=== PATIENT | female | born 1955 | race Caucasian/White ===

== ENCOUNTER 2018-01-01 14:06 | Inpatient (IN) | payer MEDICARE, OTHER ==
[2018-01-01 14:53] VITALS: BP 162/75
[2018-01-01] MEDS ORDERED: Maalox 30 mL Cup PO PRN (15:33)
[2018-01-01] MEDS ORDERED: Magnesium Hydroxide (MOM) 30 mL UDC PO PRN (15:33)
[2018-01-01] MEDS ORDERED: GUAIFENESIN PO PRN (15:37)
[2018-01-01] MEDS ORDERED: guaiFENesin 200 MG/10 ML UDC PO PRN (16:42)
[2018-01-01] MEDS: INSULIN ASPART SLIDING SCALE 100 UNITS/ML UNIT SUBQ SCH ×2 (17:44→21:40)
[2018-01-01] MEDS: Atorvastatin Calcium 10 MG TAB PO SCH (21:38)
[2018-01-02] MEDS: INSULIN ASPART SLIDING SCALE 100 UNITS/ML UNIT SUBQ SCH ×4 (06:34→20:18)
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
[2018-01-02] MEDS: Albuterol Nebulizer 2.5mg/3mL HHN PRN (12:54)
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
[2018-01-02] MEDS: Atorvastatin Calcium 10 MG TAB PO SCH (20:16)
[2018-01-03] MEDS: INSULIN ASPART SLIDING SCALE 100 UNITS/ML UNIT SUBQ SCH ×4 (06:59→22:00)
[2018-01-03 07:04] LABS: % BASOPHILS 0.6 % (0.0-2.0); % EOSINOPHILS 1.8 % (0.0-5.0); % LYMPHOCYTES 42.2 % (20.0-50.0); % MONOCYTES 7.1 % (2.0-10.0); % NEUTROPHILS 48.3 % (40.0-80.0); EOSINOPHILE ABSOLUTE 0.1 Th/cmm (0.1-0.4); HEMATOCRIT 34.5 % (41.0-60); HEMOGLOBIN 11.4 gm/dL (12-16); LYMPHOCYTE ABSOLUTE 2.9 Th/cmm (1.5-3.0); MEAN CELL VOLUME 84.3 fl (81-100); MEAN CORPUSCULAR HEMOGLOBIN 27.9 pg (27.0-31.0); MEAN CORPUSCULAR HGB CONC 33.1 pg (28.0-36.0); MEAN PLATELET VOLUME 8.7 fl; MONOCYTE ABSOLUTE 0.5 Th/cmm (0.3-1.0); NEUTROPHILE ABSOLUTE 3.4 Th/cmm (1.8-8.0); PLATELET COUNT 208 Th/cmm (150-400); RED CELL DISTRIBUTION WIDTH 13.1 % (11.5-20.0); WHITE BLOOD COUNT 6.9 Th/cmm (4.8-10.8)
[2018-01-03 07:22] LABS: ALB/GLOB RATIO 1.2 (1.0-1.8); ALBUMIN 4.1 gm/dL (3.7-5.3); ALKALINE PHOSPHATASE 89 U/L (34-104); ANION GAP 10.9 (7.0-16.0); BILIRUBIN,TOTAL 0.5 mg/dL (0.3-1.0); BUN - UREA NITROGEN 12 mg/dL (7-25); CALCIUM SERUM 9.9 mg/dL (8.6-10.3); CARBON DIOXIDE 27.3 mEq/L (21.0-31.0); CHLORIDE 104 mEq/L (98-107); CREATININE - SERUM 0.8 mg/dL (0.6-1.2); GFR AFRICAN-AMERICAN > 60.0 ml/min (>90); GFR NON AFRICAN-AMERICAN > 60.0 ml/min; GLUCOSE 197 mg/dL (70-105); POTASSIUM SERUM 4.2 mEq/L (3.5-5.1); SGOT 18 U/L (13-39); SGPT/ALT 14 U/L (7-52); SODIUM SERUM 138 mEq/L (136-145); TOTAL PROTEIN,SERUM 7.4 gm/dL (6.0-8.3)
--- NOTE | 2018-01-03 09:13 | General Progress Note ---
Subjective - Review of Systems Service Date: 01/03/18 Subjective: I am fine Objective - Results Result Diagrams: 01/03/18 06:30 01/03/18 06:30 Recent Labs: Laboratory Last Values WBC 6.9 Th/cmm (4.8-10.8) 01/03/18 06:30 RBC 4.10 Mil/cmm (3.80-5.10) 01/03/18 06:30 Hgb 11.4 gm/dL (12-16) L 01/03/18 06:30 Hct 34.5 % (41.0-60) L 01/03/18 06:30 MCV 84.3 fl (81-100) 01/03/18 06:30 MCH 27.9 pg (27.0-31.0) 01/03/18 06:30 MCHC Differential 33.1 pg (28.0-36.0) 01/03/18 06:30 RDW 13.1 % (11.5-20.0) 01/03/18 06:30 Plt Count 208 Th/cmm (150-400) 01/03/18 06:30 MPV 8.7 fl 01/03/18 06:30 Neutrophils % 48.3 % (40.0-80.0) 01/03/18 06:30 Lymphocytes % 42.2 % (20.0-50.0) 01/03/18 06:30 Monocytes % 7.1 % (2.0-10.0) 01/03/18 06:30 Eosinophils % 1.8 % (0.0-5.0) 01/03/18 06:30 Basophils % 0.6 % (0.0-2.0) 01/03/18 06:30 Sodium 138 mEq/L (136-145) 01/03/18 06:30 Potassium 4.2 mEq/L (3.5-5.1) 01/03/18 06:30 Chloride 104 mEq/L (98-107) 01/03/18 06:30 Carbon Dioxide 27.3 mEq/L (21.0-31.0) 01/03/18 06:30 Anion Gap 10.9 (7.0-16.0) 01/03/18 06:30 BUN 12 mg/dL (7-25) 01/03/18 06:30 Creatinine 0.8 mg/dL (0.6-1.2) 01/03/18 06:30 Est GFR ( Amer) > 60.0 ml/min (>90) 01/03/18 06:30 Est GFR (Non-Af Amer) > 60.0 ml/min 01/03/18 06:30 BUN/Creatinine Ratio 15.0 01/03/18 06:30 Glucose 197 mg/dL (70-105) H 01/03/18 06:30 POC Glucose 267 MG/DL (70 - 105) H 01/01/18 16:07 Calcium 9.9 mg/dL (8.6-10.3) 01/03/18 06:30 Total Bilirubin 0.5 mg/dL (0.3-1.0) 01/03/18 06:30 AST 18 U/L (13-39) 01/03/18 06:30 ALT 14 U/L (7-52) 01/03/18 06:30 Alkaline Phosphatase 89 U/L (34-104) 01/03/18 06:30 Total Protein 7.4 gm/dL (6.0-8.3) 01/03/18 06:30 Albumin 4.1 gm/dL (3.7-5.3) 01/03/18 06:30 Globulin 3.3 gm/dL 01/03/18 06:30 Albumin/Globulin Ratio 1.2 (1.0-1.8) 01/03/18 06:30 TSH 0.88 uIU/ml (0.34-5.60) 01/03/18 06:30 - Physical Exam Vitals and I&O: Vital Signs Temp 98.5 F 01/03/18 06:04 Pulse 86 01/03/18 08:42 Resp 18 01/03/18 07:13 BP 156/65 01/03/18 08:42 Pulse Ox 97 01/03/18 07:13 Intake & Output 01/02/18 01/03/18 01/03/18 18:59 06:59 18:59 Intake Total 500 Balance 500 Intake: Oral 500 Other: # Voids 4 # Bowel Movements 0 Active Medications: Current Medications Acetaminophen (Tylenol) 650 mg PO Q6HR PRN PRN Reason: Fever > 101 Stop: 03/02/18 15:36 Acetaminophen (Tylenol) 650 mg PO Q4H PRN PRN Reason: Pain (Mild) Stop: 03/02/18 18:38 Last Admin: 01/02/18 22:00 Dose: 650 mg Al Hydrox/Mg Hydrox/Simethicone (Maalox) 30 ml PO Q6H PRN PRN Reason: Dyspepsia Stop: 03/02/18 15:32 Albuterol Sulfate (Albuterol 2.5mg/3ml Neb Ud) 2.5 mg HHN Q6H PRN PRN Reason: Shortness of Breath or Wheeze Stop: 03/03/18 12:17 Last Admin: 01/02/18 12:54 Dose: 2.5 mg Amlodipine Besylate (Norvasc) 10 mg PO DAILY [facility] Stop: 03/03/18 08:59 Last Admin: 01/03/18 08:42 Dose: 10 mg Aripiprazole (Abilify) 5 mg PO DAILY ADRIANA PRN Reason: Protocol Stop: 03/04/18 08:59 Last Admin: 01/03/18 08:42 Dose: 5 mg Atorvastatin Calcium (Lipitor) 20 mg PO 2100 [facility] Stop: 03/02/18 20:59 Last Admin: 01/02/18 20:16 Dose: 20 mg Fluoxetine HCl (Prozac) 20 mg PO DAILY ADRIANA PRN Reason: Protocol Stop: 03/04/18 08:59 Last Admin: 01/03/18 08:42 Dose: 20 mg Glipizide (Glucotrol) 5 mg PO BID [facility] Stop: 03/02/18 16:59 Last Admin: 01/03/18 08:42 Dose: 5 mg Guaifenesin (Robitussin) 100 mg PO Q4H PRN PRN Reason: Cough Stop: 03/02/18 16:41 Ibuprofen (Motrin) 400 mg PO Q4HR PRN PRN Reason: Pain (Mild) Stop: 03/02/18 15:36 Last Admin: 01/02/18 16:44 Dose: 400 mg Insulin Aspart (Novolog Insulin Sliding Scale) 0 units SUBQ ACHS ADRIANA PRN Reason: Protocol Stop: 03/02/18 16:59 Last Admin: 01/03/18 06:59 Dose: 5 units Lisinopril (Zestril) 10 mg PO BID [facility] Stop: 03/02/18 16:59 Last Admin: 01/03/18 08:42 Dose: 10 mg Lorazepam (Ativan) 0.5 mg PO Q4HR PRN; Protocol PRN Reason: Anxiety/Agitation Stop: 03/02/18 16:09 Last Admin: 01/02/18 21:15 Dose: 0.5 mg Magnesium Hydroxide (Milk Of Magnesia) 30 ml PO DAILY PRN PRN Reason: Constipation Stop: 03/02/18 15:32 General: Alert, No acute distress HEENT: Atraumatic Neck: Supple Cardiovascular: Regular rate Lungs: Clear to auscultation Abdomen: Bowel sounds, Soft Extremities: Other (no edema) Neurological: Other (unstable gait) Skin: Other (Warm and dry) Psych/Mental Status: Other (Awake, alert, confused.) Assessment/Plan - Problem List Patient Problems: All Active Problems Activity intolerance (Acute) R68.89 Arthritis (Acute) M19.90 Diabetes (Acute) E11.9 HTN (hypertension) (Acute) I10 Schizophrenia (Acute) F20.9 - Assessment Assessment: Current Active Problems Problem Status Onset Activity intolerance Acute Arthritis Acute Diabetes Acute HTN (hypertension) Acute Schizophrenia Acute Patient is awake, alert, calm, in no acute distress Dx: Increased in agitation, HTN, CAD - Plan Plan: Patient is follow by psychiatry, she is continue with home meds, Will continue to monitor. Nutritional Asmnt/Malnutr-PDOC - Dietary Evaluation Malnutrition Findings (Please click <Entered> for more info): Nutritional Asmnt/Malnutrition Start: 01/02/18 11: 40 Text: Status: Complete Freq: Document 01/02/18 11:40 [email or web address] (Rec: 01/02/18 11:49 [facility] Nutritional Asmnt/Malnutrition Patient General Information Nutritional Screening High Risk Diagnosis Psychosis Pertinent Medical Hx/Surgical Hx None indicated Subjective Information patient was transferred from another medical center; seen as high risk due to elevated blood glucose. Current Diet Order/ Nutrition Support [facility] / S[facility] Not Indicated Pertinent Medications maalox, lipitor, Glipizide, Novolog, MOM Pertinent Labs Glucose 267 Nutritional Hx/Data Height 1.83 m Height (Calculated Centimeters) 182.9 Current Weight (lbs) 98.883 kg Weight (Calculated Kilograms) 98.9 Weight (Calculated Grams) 07750.1 [place] Body Weight 160 % [place] Body Weight 136 Body Mass Index (BMI) 29.5 Recent Weight Change No Weight Status Overweight GI Symptoms GI Symptoms None Difficult in: None Food Allergies No Cultural/Ethnic/Pentecostalism Belief None indicated Skin Integrity/Comment: Elias 18, intact Estimated Nutritional Goals BEE in Kcals: Using Current wt Calories/Kcals/Kg 99kg CBW (20-25 kcal/kg) Kcals Calculated 5358-2388 kcal/day Protein: Using Current wt Protein g/kg: .8-1 gm/kg Protein Calculated 80-100gm/day Fluid: ml 7377-7817 ml/day (1 ml/kcal) Nutritional Problem 1. Problem Problem Altered nutrition related lab values Etiology Related to hyperglycemia aeb Signs/Symptoms: GLucose 267 Intervention/Recommendation Comments 1. Continue 60 gm CCHO diet as toelrated by patient. 2. MD to modify insulin regimen for optimal glycemic control Expected Outcomes/Goals Expected Outcomes/Goals oral intake to meet >75% of needs, nutrition related labs/ glucose normalize, weight stable or trends toward ideal body weight
[2018-01-03 13:34] LABS: CHOLESTEROL 121 mg/dL (<200); HDL -HIGH DENSITY LIPOPROTEIN 43 mg/dL (23-92); TRIGLYCERIDES 56 mg/dL (<150)
[2018-01-03] MEDS: Atorvastatin Calcium 10 MG TAB PO SCH (21:37)
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
[2018-01-04] MEDS: INSULIN ASPART SLIDING SCALE 100 UNITS/ML UNIT SUBQ SCH ×3 (06:42→20:49)
--- NOTE | 2018-01-04 09:12 | General Progress Note ---
Subjective - Review of Systems Service Date: 01/04/18 Subjective: I am fine Objective - Results Result Diagrams: 01/03/18 06:30 01/03/18 06:30 Recent Labs: Laboratory Last Values WBC 6.9 Th/cmm (4.8-10.8) 01/03/18 06:30 RBC 4.10 Mil/cmm (3.80-5.10) 01/03/18 06:30 Hgb 11.4 gm/dL (12-16) L 01/03/18 06:30 Hct 34.5 % (41.0-60) L 01/03/18 06:30 MCV 84.3 fl (81-100) 01/03/18 06:30 MCH 27.9 pg (27.0-31.0) 01/03/18 06:30 MCHC Differential 33.1 pg (28.0-36.0) 01/03/18 06:30 RDW 13.1 % (11.5-20.0) 01/03/18 06:30 Plt Count 208 Th/cmm (150-400) 01/03/18 06:30 MPV 8.7 fl 01/03/18 06:30 Neutrophils % 48.3 % (40.0-80.0) 01/03/18 06:30 Lymphocytes % 42.2 % (20.0-50.0) 01/03/18 06:30 Monocytes % 7.1 % (2.0-10.0) 01/03/18 06:30 Eosinophils % 1.8 % (0.0-5.0) 01/03/18 06:30 Basophils % 0.6 % (0.0-2.0) 01/03/18 06:30 Sodium 138 mEq/L (136-145) 01/03/18 06:30 Potassium 4.2 mEq/L (3.5-5.1) 01/03/18 06:30 Chloride 104 mEq/L (98-107) 01/03/18 06:30 Carbon Dioxide 27.3 mEq/L (21.0-31.0) 01/03/18 06:30 Anion Gap 10.9 (7.0-16.0) 01/03/18 06:30 BUN 12 mg/dL (7-25) 01/03/18 06:30 Creatinine 0.8 mg/dL (0.6-1.2) 01/03/18 06:30 Est GFR ( Amer) > 60.0 ml/min (>90) 01/03/18 06:30 Est GFR (Non-Af Amer) > 60.0 ml/min 01/03/18 06:30 BUN/Creatinine Ratio 15.0 01/03/18 06:30 Glucose 197 mg/dL (70-105) H 01/03/18 06:30 POC Glucose 267 MG/DL (70 - 105) H 01/01/18 16:07 Hemoglobin A1c % 11.0 % (4.0-6.0) H 01/03/18 06:30 Calcium 9.9 mg/dL (8.6-10.3) 01/03/18 06:30 Total Bilirubin 0.5 mg/dL (0.3-1.0) 01/03/18 06:30 AST 18 U/L (13-39) 01/03/18 06:30 ALT 14 U/L (7-52) 01/03/18 06:30 Alkaline Phosphatase 89 U/L (34-104) 01/03/18 06:30 Total Protein 7.4 gm/dL (6.0-8.3) 01/03/18 06:30 Albumin 4.1 gm/dL (3.7-5.3) 01/03/18 06:30 Globulin 3.3 gm/dL 01/03/18 06:30 Albumin/Globulin Ratio 1.2 (1.0-1.8) 01/03/18 06:30 Triglycerides 56 mg/dL (<150) 01/03/18 06:30 Cholesterol 121 mg/dL (<200) 01/03/18 06:30 LDL Cholesterol Direct 63 mg/dL (75-193) L 01/03/18 06:30 HDL Cholesterol 43 mg/dL (23-92) 01/03/18 06:30 TSH 0.88 uIU/ml (0.34-5.60) 01/03/18 06:30 - Physical Exam Vitals and I&O: Vital Signs Temp 98.3 F 01/04/18 06:26 Pulse 88 01/04/18 08:37 Resp 18 01/04/18 07:22 BP 143/66 01/04/18 08:37 Pulse Ox 96 01/04/18 07:22 Intake & Output 01/03/18 01/04/18 01/04/18 18:59 06:59 18:59 Intake Total 480 Balance 480 Intake: Oral 480 Other: # Voids 1 Active Medications: Current Medications Acetaminophen (Tylenol) 650 mg PO Q6HR PRN PRN Reason: Fever > 101 Stop: 03/02/18 15:36 Last Admin: 01/04/18 06:50 Dose: 650 mg Acetaminophen (Tylenol) 650 mg PO Q4H PRN PRN Reason: Pain (Mild) Stop: 03/02/18 18:38 Last Admin: 01/03/18 13:33 Dose: 650 mg Al Hydrox/Mg Hydrox/Simethicone (Maalox) 30 ml PO Q6H PRN PRN Reason: Dyspepsia Stop: 03/02/18 15:32 Albuterol Sulfate (Albuterol 2.5mg/3ml Neb Ud) 2.5 mg HHN Q6H PRN PRN Reason: Shortness of Breath or Wheeze Stop: 03/03/18 12:17 Last Admin: 01/02/18 12:54 Dose: 2.5 mg Amlodipine Besylate (Norvasc) 10 mg PO DAILY [facility] Stop: 03/03/18 08:59 Last Admin: 01/04/18 08:36 Dose: 10 mg Atorvastatin Calcium (Lipitor) 20 mg PO 2100 [facility] Stop: 03/02/18 20:59 Last Admin: 01/03/18 21:37 Dose: 20 mg Glipizide (Glucotrol) 5 mg PO BID [facility] Stop: 03/02/18 16:59 Last Admin: 01/04/18 08:37 Dose: 5 mg Guaifenesin (Robitussin) 100 mg PO Q4H PRN PRN Reason: Cough Stop: 03/02/18 16:41 Ibuprofen (Motrin) 400 mg PO Q4HR PRN PRN Reason: Pain (Mild) Stop: 03/02/18 15:36 Last Admin: 01/02/18 16:44 Dose: 400 mg Insulin Aspart (Novolog Insulin Sliding Scale) 0 units SUBQ ACHS ADRIANA PRN Reason: Protocol Stop: 03/02/18 16:59 Last Admin: 01/04/18 06:42 Dose: 3 units Insulin Detemir (Levemir Insulin) 10 units SUBQ DAILY ADRIANA PRN Reason: Protocol Stop: 03/06/18 08:59 Lisinopril (Zestril) 10 mg PO BID ADRIANA Stop: 03/02/18 16:59 Last Admin: 01/04/18 08:37 Dose: 10 mg Lorazepam (Ativan) 0.5 mg PO Q4HR PRN; Protocol PRN Reason: Anxiety/Agitation Stop: 03/02/18 16:09 Last Admin: 01/03/18 21:37 Dose: 0.5 mg Magnesium Hydroxide (Milk Of Magnesia) 30 ml PO DAILY PRN PRN Reason: Constipation Stop: 03/02/18 15:32 Paroxetine HCl (Paxil) 10 mg PO DAILY ADRIANA PRN Reason: Protocol Stop: 03/05/18 08:59 Last Admin: 01/04/18 08:58 Dose: 10 mg Paroxetine HCl (Paxil) 20 mg PO HS ADRIANA PRN Reason: Protocol Stop: 03/04/18 20:59 Last Admin: 01/03/18 21:00 Dose: Not Given Risperidone (Risperdal) 2 mg PO DAILY ADRIANA PRN Reason: Protocol Stop: 03/05/18 08:59 Last Admin: 01/04/18 08:36 Dose: 2 mg General: Alert, No acute distress HEENT: Atraumatic Neck: Supple Cardiovascular: Regular rate Lungs: Clear to auscultation Abdomen: Bowel sounds, Soft Extremities: Other (no edema) Neurological: Other (unstable gait) Skin: Other (Warm and dry) Psych/Mental Status: Other (Awake, alert, confused.) Assessment/Plan - Problem List Patient Problems: All Active Problems Activity intolerance (Acute) R68.89 Arthritis (Acute) M19.90 Diabetes (Acute) E11.9 HTN (hypertension) (Acute) I10 Schizophrenia (Acute) F20.9 - Assessment Assessment: Current Active Problems Problem Status Onset Activity intolerance Acute Arthritis Acute Diabetes Acute HTN (hypertension) Acute Schizophrenia Acute Patient is awake, alert, calm, in no acute distress Dx: Increased in agitation, HTN, CAD, DM - Plan Plan: Patient is follow by psychiatry, she is continue with home meds, Will continue to monitor. Nutritional Asmnt/Malnutr-PDOC - Dietary Evaluation Malnutrition Findings (Please click <Entered> for more info): Nutritional Asmnt/Malnutrition Start: 01/02/18 11: 40 Text: Status: Complete Freq: Document 01/02/18 11:40 ROBB (Rec: 01/02/18 11:49 ROBB FISCHER- [email or web address]) Nutritional Asmnt/Malnutrition Patient General Information Nutritional Screening High Risk Diagnosis Psychosis Pertinent Medical Hx/Surgical Hx None indicated Subjective Information patient was transferred from another medical center; seen as high risk due to elevated blood glucose. Current Diet Order/ Nutrition Support 60 gm CCHO Patient / S.O Not Indicated Pertinent Medications maalox, lipitor, Glipizide, Novolog, MOM Pertinent Labs Glucose 267 Nutritional Hx/Data Height 1.83 m Height (Calculated Centimeters) 182.9 Current Weight (lbs) 98.883 kg Weight (Calculated Kilograms) 98.9 Weight (Calculated Grams) 43271.1 [place] Body Weight 160 % [place] Body Weight 136 Body Mass Index (BMI) 29.5 Recent Weight Change No Weight Status Overweight GI Symptoms GI Symptoms None Difficult in: None Food Allergies No Cultural/Ethnic/Hindu Belief None indicated Skin Integrity/Comment: Elias 18, intact Estimated Nutritional Goals BEE in Kcals: Using Current wt Calories/Kcals/Kg 99kg CBW (20-25 kcal/kg) Kcals Calculated 3027-1948 kcal/day Protein: Using Current wt Protein g/kg: .8-1 gm/kg Protein Calculated 80-100gm/day Fluid: ml 2861-1999 ml/day (1 ml/kcal) Nutritional Problem 1. Problem Problem Altered nutrition related lab values Etiology Related to hyperglycemia aeb Signs/Symptoms: GLucose 267 Intervention/Recommendation Comments 1. Continue 60 gm CCHO diet as toelrated by patient. 2. MD to modify insulin regimen for optimal glycemic control Expected Outcomes/Goals Expected Outcomes/Goals oral intake to meet >75% of needs, nutrition related labs/ glucose normalize, weight stable or trends toward ideal body weight
[2018-01-04] MEDS: Insulin Detemir 100 units/mL 10mL Vial SUBQ SCH (15:10)
[2018-01-04] MEDS: Atorvastatin Calcium 10 MG TAB PO SCH (20:48)
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
[2018-01-05] MEDS: INSULIN ASPART SLIDING SCALE 100 UNITS/ML UNIT SUBQ SCH ×4 (06:42→20:57)
[2018-01-05] MEDS: Insulin Detemir 100 units/mL 10mL Vial SUBQ SCH (08:14)
--- NOTE | 2018-01-05 13:15 | General Progress Note ---
Subjective - Review of Systems Service Date: 01/05/18 Subjective: I am fine Objective - Results Result Diagrams: 01/03/18 06:30 01/03/18 06:30 Recent Labs: Laboratory Last Values WBC 6.9 Th/cmm (4.8-10.8) 01/03/18 06:30 RBC 4.10 Mil/cmm (3.80-5.10) 01/03/18 06:30 Hgb 11.4 gm/dL (12-16) L 01/03/18 06:30 Hct 34.5 % (41.0-60) L 01/03/18 06:30 MCV 84.3 fl (81-100) 01/03/18 06:30 MCH 27.9 pg (27.0-31.0) 01/03/18 06:30 MCHC Differential 33.1 pg (28.0-36.0) 01/03/18 06:30 RDW 13.1 % (11.5-20.0) 01/03/18 06:30 Plt Count 208 Th/cmm (150-400) 01/03/18 06:30 MPV 8.7 fl 01/03/18 06:30 Neutrophils % 48.3 % (40.0-80.0) 01/03/18 06:30 Lymphocytes % 42.2 % (20.0-50.0) 01/03/18 06:30 Monocytes % 7.1 % (2.0-10.0) 01/03/18 06:30 Eosinophils % 1.8 % (0.0-5.0) 01/03/18 06:30 Basophils % 0.6 % (0.0-2.0) 01/03/18 06:30 Sodium 138 mEq/L (136-145) 01/03/18 06:30 Potassium 4.2 mEq/L (3.5-5.1) 01/03/18 06:30 Chloride 104 mEq/L (98-107) 01/03/18 06:30 Carbon Dioxide 27.3 mEq/L (21.0-31.0) 01/03/18 06:30 Anion Gap 10.9 (7.0-16.0) 01/03/18 06:30 BUN 12 mg/dL (7-25) 01/03/18 06:30 Creatinine 0.8 mg/dL (0.6-1.2) 01/03/18 06:30 Est GFR ( Amer) > 60.0 ml/min (>90) 01/03/18 06:30 Est GFR (Non-Af Amer) > 60.0 ml/min 01/03/18 06:30 BUN/Creatinine Ratio 15.0 01/03/18 06:30 Glucose 197 mg/dL (70-105) H 01/03/18 06:30 POC Glucose 267 MG/DL (70 - 105) H 01/01/18 16:07 Hemoglobin A1c % 11.0 % (4.0-6.0) H 01/03/18 06:30 Calcium 9.9 mg/dL (8.6-10.3) 01/03/18 06:30 Total Bilirubin 0.5 mg/dL (0.3-1.0) 01/03/18 06:30 AST 18 U/L (13-39) 01/03/18 06:30 ALT 14 U/L (7-52) 01/03/18 06:30 Alkaline Phosphatase 89 U/L (34-104) 01/03/18 06:30 Total Protein 7.4 gm/dL (6.0-8.3) 01/03/18 06:30 Albumin 4.1 gm/dL (3.7-5.3) 01/03/18 06:30 Globulin 3.3 gm/dL 01/03/18 06:30 Albumin/Globulin Ratio 1.2 (1.0-1.8) 01/03/18 06:30 Triglycerides 56 mg/dL (<150) 01/03/18 06:30 Cholesterol 121 mg/dL (<200) 01/03/18 06:30 LDL Cholesterol Direct 63 mg/dL (75-193) L 01/03/18 06:30 HDL Cholesterol 43 mg/dL (23-92) 01/03/18 06:30 TSH 0.88 uIU/ml (0.34-5.60) 01/03/18 06:30 - Physical Exam Vitals and I&O: Vital Signs Temp 98.7 F 01/05/18 04:58 Pulse 86 01/05/18 08:14 Resp 19 01/05/18 04:58 BP 138/69 01/05/18 08:14 Pulse Ox 97 01/05/18 04:58 Intake & Output 01/04/18 01/05/18 01/05/18 18:59 06:59 18:59 Intake Total 1200 300 Balance 1200 300 Intake: Oral 1200 300 Other: # Voids 3 2 # Bowel Movements 2 1 Active Medications: Current Medications Acetaminophen (Tylenol) 650 mg PO Q6HR PRN PRN Reason: Fever > 101 Stop: 03/02/18 15:36 Last Admin: 01/04/18 06:50 Dose: 650 mg Acetaminophen (Tylenol) 650 mg PO Q4H PRN PRN Reason: Pain (Mild) Stop: 03/02/18 18:38 Last Admin: 01/03/18 13:33 Dose: 650 mg Al Hydrox/Mg Hydrox/Simethicone (Maalox) 30 ml PO Q6H PRN PRN Reason: Dyspepsia Stop: 03/02/18 15:32 Albuterol Sulfate (Albuterol 2.5mg/3ml Neb Ud) 2.5 mg HHN Q6H PRN PRN Reason: Shortness of Breath or Wheeze Stop: 03/03/18 12:17 Last Admin: 01/02/18 12:54 Dose: 2.5 mg Amlodipine Besylate (Norvasc) 10 mg PO DAILY [facility] OF [facility] Stop: 03/03/18 08:59 Last Admin: 01/05/18 08:13 Dose: 10 mg Atorvastatin Calcium (Lipitor) 20 mg PO 2100 [facility] Stop: 03/02/18 20:59 Last Admin: 01/04/18 20:48 Dose: 20 mg Glipizide (Glucotrol) 5 mg PO BID [facility] OF [facility] Stop: 03/02/18 16:59 Last Admin: 01/05/18 08:13 Dose: 5 mg Guaifenesin (Robitussin) 100 mg PO Q4H PRN PRN Reason: Cough Stop: 03/02/18 16:41 Ibuprofen (Motrin) 400 mg PO Q4HR PRN PRN Reason: Pain (Mild) Stop: 03/02/18 15:36 Last Admin: 01/05/18 08:14 Dose: 400 mg Insulin Aspart (Novolog Insulin Sliding Scale) 0 units SUBQ ACHS ADRIANA PRN Reason: Protocol Stop: 03/02/18 16:59 Last Admin: 01/05/18 12:04 Dose: 7 units Insulin Detemir (Levemir Insulin) 10 units SUBQ DAILY ADRIANA PRN Reason: Protocol Stop: 03/05/18 10:59 Last Admin: 01/05/18 08:14 Dose: Not Given Lisinopril (Zestril) 10 mg PO BID ADRIANA Stop: 03/02/18 16:59 Last Admin: 01/05/18 08:14 Dose: 10 mg Lorazepam (Ativan) 0.5 mg PO Q4HR PRN; Protocol PRN Reason: Anxiety/Agitation Stop: 03/02/18 16:09 Last Admin: 01/04/18 20:50 Dose: 0.5 mg Magnesium Hydroxide (Milk Of Magnesia) 30 ml PO DAILY PRN PRN Reason: Constipation Stop: 03/02/18 15:32 Paroxetine HCl (Paxil) 10 mg PO DAILY ADRIANA PRN Reason: Protocol Stop: 03/05/18 08:59 Last Admin: 01/05/18 08:19 Dose: 10 mg Paroxetine HCl (Paxil) 20 mg PO HS ADRIANA PRN Reason: Protocol Stop: 03/04/18 20:59 Last Admin: 01/04/18 20:48 Dose: 20 mg Risperidone (Risperdal) 2 mg PO DAILY ADRIANA PRN Reason: Protocol Stop: 03/05/18 08:59 Last Admin: 01/05/18 08:14 Dose: 2 mg General: Alert, No acute distress HEENT: Atraumatic Neck: Supple Cardiovascular: Regular rate Lungs: Clear to auscultation Abdomen: Bowel sounds, Soft Extremities: Other (no edema) Neurological: Other (unstable gait) Skin: Other (Warm and dry) Psych/Mental Status: Other (Awake, alert, confused.) Assessment/Plan - Problem List Patient Problems: All Active Problems Activity intolerance (Acute) R68.89 Arthritis (Acute) M19.90 Diabetes (Acute) E11.9 HTN (hypertension) (Acute) I10 Schizophrenia (Acute) F20.9 - Assessment Assessment: Current Active Problems Problem Status Onset Activity intolerance Acute Arthritis Acute Diabetes Acute HTN (hypertension) Acute Schizophrenia Acute Patient is awake, alert, calm, in no acute distress Dx: Increased in agitation, HTN, CAD, DM - Plan Plan: Patient is follow by psychiatry, she is continue with home meds, Will continue to monitor. Nutritional Asmnt/Malnutr-PDOC - Dietary Evaluation Malnutrition Findings (Please click <Entered> for more info): Nutritional Asmnt/Malnutrition Start: 01/02/18 11: 40 Text: Status: Complete Freq: Document 01/02/18 11:40 AMARISAMADA (Rec: 01/02/18 11:49 [email or web address] AMADO- [email or web address]) Nutritional Asmnt/Malnutrition Patient General Information Nutritional Screening High Risk Diagnosis Psychosis Pertinent Medical Hx/Surgical Hx None indicated Subjective Information patient was transferred from another medical center; seen as high risk due to elevated blood glucose. Current Diet Order/ Nutrition Support 60 gm CCHO Patient / S.O Not Indicated Pertinent Medications maalox, lipitor, Glipizide, Novolog, MOM Pertinent Labs Glucose 267 Nutritional Hx/Data Height 1.83 m Height (Calculated Centimeters) 182.9 Current Weight (lbs) 98.883 kg Weight (Calculated Kilograms) 98.9 Weight (Calculated Grams) 29929.1 [place] Body Weight 160 % [place] Body Weight 136 Body Mass Index (BMI) 29.5 Recent Weight Change No Weight Status Overweight GI Symptoms GI Symptoms None Difficult in: None Food Allergies No Cultural/Ethnic/Holiness Belief None indicated Skin Integrity/Comment: Elias 18, intact Estimated Nutritional Goals BEE in Kcals: Using Current wt Calories/Kcals/Kg 99kg CBW (20-25 kcal/kg) Kcals Calculated 9285-1116 kcal/day Protein: Using Current wt Protein g/kg: .8-1 gm/kg Protein Calculated 80-100gm/day Fluid: ml 6055-0880 ml/day (1 ml/kcal) Nutritional Problem 1. Problem Problem Altered nutrition related lab values Etiology Related to hyperglycemia aeb Signs/Symptoms: GLucose 267 Intervention/Recommendation Comments 1. Continue 60 gm CCHO diet as toelrated by patient. 2. MD to modify insulin regimen for optimal glycemic control Expected Outcomes/Goals Expected Outcomes/Goals oral intake to meet >75% of needs, nutrition related labs/ glucose normalize, weight stable or trends toward ideal body weight
[2018-01-05] MEDS: Atorvastatin Calcium 10 MG TAB PO SCH (20:57)
--- NOTE | 2018-01-05 22:09 | Progress Notes ---
DATE: 01/05/2018 SUBJECTIVE: Chart reviewed and the patient interviewed. Also, discussed the patient's condition with the staff and reviewed records and labs. The patient reports auditory hallucinations. The patient also is still complaining of feeling depressed and she still have high anxiety level. The patient also did not sleep much last night. She continued to also be depressed and saying "I don't care about life." The patient also is still unable to give any safe plan for self-care and unable to decide where she can live after she leaves the hospital. On the other hand, the patient continued to comply with medications with no side effects of medications. ASSESSMENT: The patient is still depressed and psychotic. TREATMENT PLAN: We will continue Paxil and Risperdal same dose. Also, continue to work on her mood swings and her irritability. Also, continue adjusting psychotropic medications and follow up closely. [facility]# [id number]
[2018-01-06] MEDS: INSULIN ASPART SLIDING SCALE 100 UNITS/ML UNIT SUBQ SCH ×5 (06:59→21:26)
[2018-01-06] MEDS: Insulin Detemir 100 units/mL 10mL Vial SUBQ SCH (08:51)
--- NOTE | 2018-01-06 09:00 | General Progress Note ---
Subjective - Review of Systems Service Date: 01/06/18 Subjective: I am fine Objective - Results Result Diagrams: 01/03/18 06:30 01/03/18 06:30 Recent Labs: Laboratory Last Values WBC 6.9 Th/cmm (4.8-10.8) 01/03/18 06:30 RBC 4.10 Mil/cmm (3.80-5.10) 01/03/18 06:30 Hgb 11.4 gm/dL (12-16) L 01/03/18 06:30 Hct 34.5 % (41.0-60) L 01/03/18 06:30 MCV 84.3 fl (81-100) 01/03/18 06:30 MCH 27.9 pg (27.0-31.0) 01/03/18 06:30 MCHC Differential 33.1 pg (28.0-36.0) 01/03/18 06:30 RDW 13.1 % (11.5-20.0) 01/03/18 06:30 Plt Count 208 Th/cmm (150-400) 01/03/18 06:30 MPV 8.7 fl 01/03/18 06:30 Neutrophils % 48.3 % (40.0-80.0) 01/03/18 06:30 Lymphocytes % 42.2 % (20.0-50.0) 01/03/18 06:30 Monocytes % 7.1 % (2.0-10.0) 01/03/18 06:30 Eosinophils % 1.8 % (0.0-5.0) 01/03/18 06:30 Basophils % 0.6 % (0.0-2.0) 01/03/18 06:30 Sodium 138 mEq/L (136-145) 01/03/18 06:30 Potassium 4.2 mEq/L (3.5-5.1) 01/03/18 06:30 Chloride 104 mEq/L (98-107) 01/03/18 06:30 Carbon Dioxide 27.3 mEq/L (21.0-31.0) 01/03/18 06:30 Anion Gap 10.9 (7.0-16.0) 01/03/18 06:30 BUN 12 mg/dL (7-25) 01/03/18 06:30 Creatinine 0.8 mg/dL (0.6-1.2) 01/03/18 06:30 Est GFR ( Amer) > 60.0 ml/min (>90) 01/03/18 06:30 Est GFR (Non-Af Amer) > 60.0 ml/min 01/03/18 06:30 BUN/Creatinine Ratio 15.0 01/03/18 06:30 Glucose 197 mg/dL (70-105) H 01/03/18 06:30 POC Glucose 213 MG/DL (70 - 105) H 01/06/18 06:56 Hemoglobin A1c % 11.0 % (4.0-6.0) H 01/03/18 06:30 Calcium 9.9 mg/dL (8.6-10.3) 01/03/18 06:30 Total Bilirubin 0.5 mg/dL (0.3-1.0) 01/03/18 06:30 AST 18 U/L (13-39) 01/03/18 06:30 ALT 14 U/L (7-52) 01/03/18 06:30 Alkaline Phosphatase 89 U/L (34-104) 01/03/18 06:30 Total Protein 7.4 gm/dL (6.0-8.3) 01/03/18 06:30 Albumin 4.1 gm/dL (3.7-5.3) 01/03/18 06:30 Globulin 3.3 gm/dL 01/03/18 06:30 Albumin/Globulin Ratio 1.2 (1.0-1.8) 01/03/18 06:30 Triglycerides 56 mg/dL (<150) 01/03/18 06:30 Cholesterol 121 mg/dL (<200) 01/03/18 06:30 LDL Cholesterol Direct 63 mg/dL (75-193) L 01/03/18 06:30 HDL Cholesterol 43 mg/dL (23-92) 01/03/18 06:30 TSH 0.88 uIU/ml (0.34-5.60) 01/03/18 06:30 - Physical Exam Vitals and I&O: Vital Signs Temp 97.8 F 01/05/18 14:42 Pulse 88 01/06/18 07:18 Resp 18 01/06/18 07:18 BP 122/63 01/05/18 17:27 Pulse Ox 94 01/06/18 07:18 Intake & Output 01/05/18 01/06/18 01/06/18 18:59 06:59 18:59 Intake Total 1500 Balance 1500 Intake: Oral 1500 Other: # Voids 3 Active Medications: Current Medications Acetaminophen (Tylenol) 650 mg PO Q6HR PRN PRN Reason: Fever > 101 Stop: 03/02/18 15:36 Last Admin: 01/04/18 06:50 Dose: 650 mg Acetaminophen (Tylenol) 650 mg PO Q4H PRN PRN Reason: Pain (Mild) Stop: 03/02/18 18:38 Last Admin: 01/03/18 13:33 Dose: 650 mg Al Hydrox/Mg Hydrox/Simethicone (Maalox) 30 ml PO Q6H PRN PRN Reason: Dyspepsia Stop: 03/02/18 15:32 Albuterol Sulfate (Albuterol 2.5mg/3ml Neb Ud) 2.5 mg HHN Q6H PRN PRN Reason: Shortness of Breath or Wheeze Stop: 03/03/18 12:17 Last Admin: 01/02/18 12:54 Dose: 2.5 mg Amlodipine Besylate (Norvasc) 10 mg PO DAILY [facility] Stop: 03/03/18 08:59 Last Admin: 01/05/18 08:13 Dose: 10 mg Atorvastatin Calcium (Lipitor) 20 mg PO 2100 [facility] Stop: 03/02/18 20:59 Last Admin: 01/05/18 20:57 Dose: 20 mg Glipizide (Glucotrol) 5 mg PO BID [facility] Stop: 03/02/18 16:59 Last Admin: 01/05/18 17:28 Dose: 5 mg Guaifenesin (Robitussin) 100 mg PO Q4H PRN PRN Reason: Cough Stop: 03/02/18 16:41 Ibuprofen (Motrin) 400 mg PO Q4HR PRN PRN Reason: Pain (Mild) Stop: 03/02/18 15:36 Last Admin: 01/05/18 18:23 Dose: 400 mg Insulin Aspart (Novolog Insulin Sliding Scale) 0 units SUBQ ACHS ADRIANA PRN Reason: Protocol Stop: 03/02/18 16:59 Last Admin: 01/06/18 06:59 Dose: 5 units Insulin Detemir (Levemir Insulin) 10 units SUBQ DAILY ADRIANA PRN Reason: Protocol Stop: 03/05/18 10:59 Last Admin: 01/05/18 08:14 Dose: Not Given Lisinopril (Zestril) 10 mg PO BID ADRIANA Stop: 03/02/18 16:59 Last Admin: 01/05/18 17:27 Dose: 10 mg Lorazepam (Ativan) 0.5 mg PO Q4HR PRN; Protocol PRN Reason: Anxiety/Agitation Stop: 03/02/18 16:09 Last Admin: 01/06/18 01:31 Dose: 0.5 mg Magnesium Hydroxide (Milk Of Magnesia) 30 ml PO DAILY PRN PRN Reason: Constipation Stop: 03/02/18 15:32 Paroxetine HCl (Paxil) 10 mg PO DAILY ADRIANA PRN Reason: Protocol Stop: 03/05/18 08:59 Last Admin: 01/05/18 08:19 Dose: 10 mg Paroxetine HCl (Paxil) 20 mg PO HS ADRIANA PRN Reason: Protocol Stop: 03/04/18 20:59 Last Admin: 01/05/18 20:57 Dose: 20 mg Risperidone (Risperdal) 2 mg PO DAILY ADRIANA PRN Reason: Protocol Stop: 03/05/18 08:59 Last Admin: 01/05/18 08:14 Dose: 2 mg General: Alert, No acute distress HEENT: Atraumatic Neck: Supple Cardiovascular: Regular rate Lungs: Clear to auscultation Abdomen: Bowel sounds, Soft Extremities: Other (no edema) Neurological: Other (unstable gait) Skin: Other (Warm and dry) Psych/Mental Status: Other (Awake, alert, confused.) Assessment/Plan - Problem List Patient Problems: All Active Problems Activity intolerance (Acute) R68.89 Arthritis (Acute) M19.90 Diabetes (Acute) E11.9 HTN (hypertension) (Acute) I10 Schizophrenia (Acute) F20.9 - Assessment Assessment: Current Active Problems Problem Status Onset Activity intolerance Acute Arthritis Acute Diabetes Acute HTN (hypertension) Acute Schizophrenia Acute Patient is awake, alert, calm, in no acute distress Dx: Increased in agitation, HTN, CAD, DM - Plan Plan: Patient is follow by psychiatry, she is continue with home meds, Will continue to monitor. Nutritional Asmnt/Malnutr-PDOC - Dietary Evaluation Malnutrition Findings (Please click <Entered> for more info): Nutritional Asmnt/Malnutrition Start: 01/02/18 11: 40 Text: Status: Complete Freq: Document 01/02/18 11:40 ROBB (Rec: 01/02/18 11:49 ROBB AMADO- [email or web address]) Nutritional Asmnt/Malnutrition Patient General Information Nutritional Screening High Risk Diagnosis Psychosis Pertinent Medical Hx/Surgical Hx None indicated Subjective Information patient was transferred from another medical center; seen as high risk due to elevated blood glucose. Current Diet Order/ Nutrition Support 60 gm CCHO Patient / S.O Not Indicated Pertinent Medications maalox, lipitor, Glipizide, Novolog, MOM Pertinent Labs Glucose 267 Nutritional Hx/Data Height 1.83 m Height (Calculated Centimeters) 182.9 Current Weight (lbs) 98.883 kg Weight (Calculated Kilograms) 98.9 Weight (Calculated Grams) 10997.1 [place] Body Weight 160 % [place] Body Weight 136 Body Mass Index (BMI) 29.5 Recent Weight Change No Weight Status Overweight GI Symptoms GI Symptoms None Difficult in: None Food Allergies No Cultural/Ethnic/Holiness Belief None indicated Skin Integrity/Comment: Elias 18, intact Estimated Nutritional Goals BEE in Kcals: Using Current wt Calories/Kcals/Kg 99kg CBW (20-25 kcal/kg) Kcals Calculated 0089-1749 kcal/day Protein: Using Current wt Protein g/kg: .8-1 gm/kg Protein Calculated 80-100gm/day Fluid: ml 9602-6670 ml/day (1 ml/kcal) Nutritional Problem 1. Problem Problem Altered nutrition related lab values Etiology Related to hyperglycemia aeb Signs/Symptoms: GLucose 267 Intervention/Recommendation Comments 1. Continue 60 gm CCHO diet as toelrated by patient. 2. MD to modify insulin regimen for optimal glycemic control Expected Outcomes/Goals Expected Outcomes/Goals oral intake to meet >75% of needs, nutrition related labs/ glucose normalize, weight stable or trends toward ideal body weight
[2018-01-06] MEDS: Atorvastatin Calcium 10 MG TAB PO SCH (21:26)
[2018-01-07] MEDS: INSULIN ASPART SLIDING SCALE 100 UNITS/ML UNIT SUBQ SCH ×4 (06:40→20:52)
--- NOTE | 2018-01-07 08:42 | General Progress Note ---
Subjective - Review of Systems Service Date: 01/07/18 Subjective: I am fine Objective - Results Result Diagrams: 01/03/18 06:30 01/03/18 06:30 Recent Labs: Laboratory Last Values WBC 6.9 Th/cmm (4.8-10.8) 01/03/18 06:30 RBC 4.10 Mil/cmm (3.80-5.10) 01/03/18 06:30 Hgb 11.4 gm/dL (12-16) L 01/03/18 06:30 Hct 34.5 % (41.0-60) L 01/03/18 06:30 MCV 84.3 fl (81-100) 01/03/18 06:30 MCH 27.9 pg (27.0-31.0) 01/03/18 06:30 MCHC Differential 33.1 pg (28.0-36.0) 01/03/18 06:30 RDW 13.1 % (11.5-20.0) 01/03/18 06:30 Plt Count 208 Th/cmm (150-400) 01/03/18 06:30 MPV 8.7 fl 01/03/18 06:30 Neutrophils % 48.3 % (40.0-80.0) 01/03/18 06:30 Lymphocytes % 42.2 % (20.0-50.0) 01/03/18 06:30 Monocytes % 7.1 % (2.0-10.0) 01/03/18 06:30 Eosinophils % 1.8 % (0.0-5.0) 01/03/18 06:30 Basophils % 0.6 % (0.0-2.0) 01/03/18 06:30 Sodium 138 mEq/L (136-145) 01/03/18 06:30 Potassium 4.2 mEq/L (3.5-5.1) 01/03/18 06:30 Chloride 104 mEq/L (98-107) 01/03/18 06:30 Carbon Dioxide 27.3 mEq/L (21.0-31.0) 01/03/18 06:30 Anion Gap 10.9 (7.0-16.0) 01/03/18 06:30 BUN 12 mg/dL (7-25) 01/03/18 06:30 Creatinine 0.8 mg/dL (0.6-1.2) 01/03/18 06:30 Est GFR ( Amer) > 60.0 ml/min (>90) 01/03/18 06:30 Est GFR (Non-Af Amer) > 60.0 ml/min 01/03/18 06:30 BUN/Creatinine Ratio 15.0 01/03/18 06:30 Glucose 197 mg/dL (70-105) H 01/03/18 06:30 POC Glucose 213 MG/DL (70 - 105) H 01/06/18 06:56 Hemoglobin A1c % 11.0 % (4.0-6.0) H 01/03/18 06:30 Calcium 9.9 mg/dL (8.6-10.3) 01/03/18 06:30 Total Bilirubin 0.5 mg/dL (0.3-1.0) 01/03/18 06:30 AST 18 U/L (13-39) 01/03/18 06:30 ALT 14 U/L (7-52) 01/03/18 06:30 Alkaline Phosphatase 89 U/L (34-104) 01/03/18 06:30 Total Protein 7.4 gm/dL (6.0-8.3) 01/03/18 06:30 Albumin 4.1 gm/dL (3.7-5.3) 01/03/18 06:30 Globulin 3.3 gm/dL 01/03/18 06:30 Albumin/Globulin Ratio 1.2 (1.0-1.8) 01/03/18 06:30 Triglycerides 56 mg/dL (<150) 01/03/18 06:30 Cholesterol 121 mg/dL (<200) 01/03/18 06:30 LDL Cholesterol Direct 63 mg/dL (75-193) L 01/03/18 06:30 HDL Cholesterol 43 mg/dL (23-92) 01/03/18 06:30 TSH 0.88 uIU/ml (0.34-5.60) 01/03/18 06:30 - Physical Exam Vitals and I&O: Vital Signs Temp 97.2 F 01/06/18 15:47 Pulse 85 01/06/18 22:51 Resp 18 01/06/18 22:51 BP 110/60 01/07/18 08:05 Pulse Ox 96 01/06/18 22:51 Active Medications: Current Medications Acetaminophen (Tylenol) 650 mg PO Q6HR PRN PRN Reason: Fever > 101 Stop: 03/02/18 15:36 Last Admin: 01/04/18 06:50 Dose: 650 mg Acetaminophen (Tylenol) 650 mg PO Q4H PRN PRN Reason: Pain (Mild) Stop: 03/02/18 18:38 Last Admin: 01/03/18 13:33 Dose: 650 mg Al Hydrox/Mg Hydrox/Simethicone (Maalox) 30 ml PO Q6H PRN PRN Reason: Dyspepsia Stop: 03/02/18 15:32 Albuterol Sulfate (Albuterol 2.5mg/3ml Neb Ud) 2.5 mg HHN Q6H PRN PRN Reason: Shortness of Breath or Wheeze Stop: 03/03/18 12:17 Last Admin: 01/02/18 12:54 Dose: 2.5 mg Amlodipine Besylate (Norvasc) 10 mg PO DAILY [facility] Stop: 03/03/18 08:59 Last Admin: 01/07/18 08:05 Dose: Not Given Atorvastatin Calcium (Lipitor) 20 mg PO 2100 [facility] Stop: 03/02/18 20:59 Last Admin: 01/06/18 21:26 Dose: 20 mg Glipizide (Glucotrol) 5 mg PO BID [facility] Stop: 03/02/18 16:59 Last Admin: 01/06/18 16:12 Dose: 5 mg Guaifenesin (Robitussin) 100 mg PO Q4H PRN PRN Reason: Cough Stop: 03/02/18 16:41 Ibuprofen (Motrin) 400 mg PO Q4HR PRN PRN Reason: Pain (Mild) Stop: 03/02/18 15:36 Last Admin: 01/05/18 18:23 Dose: 400 mg Insulin Aspart (Novolog Insulin Sliding Scale) 0 units SUBQ ACHS ADRIANA PRN Reason: Protocol Stop: 03/02/18 16:59 Last Admin: 01/07/18 06:40 Dose: 3 units Insulin Detemir (Levemir Insulin) 10 units SUBQ DAILY ADRIANA PRN Reason: Protocol Stop: 03/05/18 10:59 Last Admin: 01/06/18 08:51 Dose: 10 units Lisinopril (Zestril) 10 mg PO BID ADRIANA Stop: 03/02/18 16:59 Last Admin: 01/07/18 08:05 Dose: Not Given Lorazepam (Ativan) 0.5 mg PO Q4HR PRN; Protocol PRN Reason: Anxiety/Agitation Stop: 03/02/18 16:09 Last Admin: 01/06/18 21:27 Dose: 0.5 mg Magnesium Hydroxide (Milk Of Magnesia) 30 ml PO DAILY PRN PRN Reason: Constipation Stop: 03/02/18 15:32 Paroxetine HCl (Paxil) 10 mg PO DAILY ADRIANA PRN Reason: Protocol Stop: 03/05/18 08:59 Last Admin: 01/06/18 08:45 Dose: 10 mg Paroxetine HCl (Paxil) 20 mg PO HS ADRIANA PRN Reason: Protocol Stop: 03/04/18 20:59 Last Admin: 01/06/18 21:26 Dose: 20 mg Risperidone (Risperdal) 2 mg PO DAILY ADRIANA PRN Reason: Protocol Stop: 03/05/18 08:59 Last Admin: 01/06/18 08:46 Dose: 2 mg General: Alert, No acute distress HEENT: Atraumatic Neck: Supple Cardiovascular: Regular rate Lungs: Clear to auscultation Abdomen: Bowel sounds, Soft Extremities: Other (no edema) Neurological: Other (unstable gait) Skin: Other (Warm and dry) Psych/Mental Status: Other (Awake, alert, confused.) Assessment/Plan - Problem List Patient Problems: All Active Problems Activity intolerance (Acute) R68.89 Arthritis (Acute) M19.90 Diabetes (Acute) E11.9 HTN (hypertension) (Acute) I10 Schizophrenia (Acute) F20.9 - Assessment Assessment: Current Active Problems Problem Status Onset Activity intolerance Acute Arthritis Acute Diabetes Acute HTN (hypertension) Acute Schizophrenia Acute Patient is awake, alert, calm, in no acute distress Dx: Increased in agitation, HTN, CAD, DM - Plan Plan: Patient is follow by psychiatry, she is continue with home meds, Will continue to monitor. Nutritional Asmnt/Malnutr-PDOC - Dietary Evaluation Malnutrition Findings (Please click <Entered> for more info): Nutritional Asmnt/Malnutrition Start: 01/02/18 11: 40 Text: Status: Complete Freq: Document 01/02/18 11:40 [email or web address] (Rec: 01/02/18 11:49 ROBB AMADO- [email or web address]) Nutritional Asmnt/Malnutrition Patient General Information Nutritional Screening High Risk Diagnosis Psychosis Pertinent Medical Hx/Surgical Hx None indicated Subjective Information patient was transferred from another medical center; seen as high risk due to elevated blood glucose. Current Diet Order/ Nutrition Support 60 gm CCHO Patient / S.O Not Indicated Pertinent Medications maalox, lipitor, Glipizide, Novolog, MOM Pertinent Labs Glucose 267 Nutritional Hx/Data Height 1.83 m Height (Calculated Centimeters) 182.9 Current Weight (lbs) 98.883 kg Weight (Calculated Kilograms) 98.9 Weight (Calculated Grams) 62553.1 [place] Body Weight 160 % [place] Body Weight 136 Body Mass Index (BMI) 29.5 Recent Weight Change No Weight Status Overweight GI Symptoms GI Symptoms None Difficult in: None Food Allergies No Cultural/Ethnic/[employer] Belief None indicated Skin Integrity/Comment: Elias 18, intact Estimated Nutritional Goals BEE in Kcals: Using Current wt Calories/Kcals/Kg 99kg CBW (20-25 kcal/kg) Kcals Calculated 2915-9100 kcal/day Protein: Using Current wt Protein g/kg: .8-1 gm/kg Protein Calculated 80-100gm/day Fluid: ml 9786-6705 ml/day (1 ml/kcal) Nutritional Problem 1. Problem Problem Altered nutrition related lab values Etiology Related to hyperglycemia aeb Signs/Symptoms: GLucose 267 Intervention/Recommendation Comments 1. Continue 60 gm CCHO diet as toelrated by patient. 2. MD to modify insulin regimen for optimal glycemic control Expected Outcomes/Goals Expected Outcomes/Goals oral intake to meet >75% of needs, nutrition related labs/ glucose normalize, weight stable or trends toward ideal body weight
[2018-01-07] MEDS: Insulin Detemir 100 units/mL 10mL Vial SUBQ SCH (09:09)
--- NOTE | 2018-01-07 09:17 | Progress Notes ---
DATE: 01/06/2018 Chart reviewed and the patient interviewed. Also discussed the patient's condition with the staff and reviewed records and labs. The patient continued to be severely anxious and is still in a depressed mood. The patient also is still feeling hopeless and helpless and she continued to have hopeless feeling and feels that there is no reason for her to live. The patient also is interacting minimally with others. She is also still reporting hearing voices and auditory hallucinations. Otherwise, the patient continued to comply with taking Paxil and Risperdal with no side effects. ASSESSMENT: The patient is still psychotic and agitated, but seems to show some improvement. TREATMENT PLAN: We will continue to monitor her behavior and her condition closely. Also, we will continue to adjust psychotropic medications and continue to work on her ineffective coping. [facility]# [id number]
[2018-01-07] MEDS: Atorvastatin Calcium 10 MG TAB PO SCH (20:49)
[2018-01-08] MEDS: INSULIN ASPART SLIDING SCALE 100 UNITS/ML UNIT SUBQ SCH ×4 (06:39→21:10)
[2018-01-08] MEDS: Insulin Detemir 100 units/mL 10mL Vial SUBQ SCH (09:27)
--- NOTE | 2018-01-08 10:21 | General Progress Note ---
Subjective - Review of Systems Service Date: 01/08/18 Subjective: I am fine Objective - Results Result Diagrams: 01/03/18 06:30 01/03/18 06:30 Recent Labs: Laboratory Last Values WBC 6.9 Th/cmm (4.8-10.8) 01/03/18 06:30 RBC 4.10 Mil/cmm (3.80-5.10) 01/03/18 06:30 Hgb 11.4 gm/dL (12-16) L 01/03/18 06:30 Hct 34.5 % (41.0-60) L 01/03/18 06:30 MCV 84.3 fl (81-100) 01/03/18 06:30 MCH 27.9 pg (27.0-31.0) 01/03/18 06:30 MCHC Differential 33.1 pg (28.0-36.0) 01/03/18 06:30 RDW 13.1 % (11.5-20.0) 01/03/18 06:30 Plt Count 208 Th/cmm (150-400) 01/03/18 06:30 MPV 8.7 fl 01/03/18 06:30 Neutrophils % 48.3 % (40.0-80.0) 01/03/18 06:30 Lymphocytes % 42.2 % (20.0-50.0) 01/03/18 06:30 Monocytes % 7.1 % (2.0-10.0) 01/03/18 06:30 Eosinophils % 1.8 % (0.0-5.0) 01/03/18 06:30 Basophils % 0.6 % (0.0-2.0) 01/03/18 06:30 Sodium 138 mEq/L (136-145) 01/03/18 06:30 Potassium 4.2 mEq/L (3.5-5.1) 01/03/18 06:30 Chloride 104 mEq/L (98-107) 01/03/18 06:30 Carbon Dioxide 27.3 mEq/L (21.0-31.0) 01/03/18 06:30 Anion Gap 10.9 (7.0-16.0) 01/03/18 06:30 BUN 12 mg/dL (7-25) 01/03/18 06:30 Creatinine 0.8 mg/dL (0.6-1.2) 01/03/18 06:30 Est GFR ( Amer) > 60.0 ml/min (>90) 01/03/18 06:30 Est GFR (Non-Af Amer) > 60.0 ml/min 01/03/18 06:30 BUN/Creatinine Ratio 15.0 01/03/18 06:30 Glucose 197 mg/dL (70-105) H 01/03/18 06:30 POC Glucose 213 MG/DL (70 - 105) H 01/06/18 06:56 Hemoglobin A1c % 11.0 % (4.0-6.0) H 01/03/18 06:30 Calcium 9.9 mg/dL (8.6-10.3) 01/03/18 06:30 Total Bilirubin 0.5 mg/dL (0.3-1.0) 01/03/18 06:30 AST 18 U/L (13-39) 01/03/18 06:30 ALT 14 U/L (7-52) 01/03/18 06:30 Alkaline Phosphatase 89 U/L (34-104) 01/03/18 06:30 Total Protein 7.4 gm/dL (6.0-8.3) 01/03/18 06:30 Albumin 4.1 gm/dL (3.7-5.3) 01/03/18 06:30 Globulin 3.3 gm/dL 01/03/18 06:30 Albumin/Globulin Ratio 1.2 (1.0-1.8) 01/03/18 06:30 Triglycerides 56 mg/dL (<150) 01/03/18 06:30 Cholesterol 121 mg/dL (<200) 01/03/18 06:30 LDL Cholesterol Direct 63 mg/dL (75-193) L 01/03/18 06:30 HDL Cholesterol 43 mg/dL (23-92) 01/03/18 06:30 TSH 0.88 uIU/ml (0.34-5.60) 01/03/18 06:30 - Physical Exam Vitals and I&O: Vital Signs Temp 98.5 F 01/08/18 06:22 Pulse 84 01/08/18 09:31 Resp 20 01/08/18 06:22 BP 132/69 01/08/18 09:31 Pulse Ox 100 01/07/18 21:10 Intake & Output 01/07/18 01/08/18 01/08/18 18:59 06:59 18:59 Intake Total 420 Balance 420 Intake: Oral 420 Other: # Voids 1 Active Medications: Current Medications Acetaminophen (Tylenol) 650 mg PO Q6HR PRN PRN Reason: Fever > 101 Stop: 03/02/18 15:36 Last Admin: 01/04/18 06:50 Dose: 650 mg Acetaminophen (Tylenol) 650 mg PO Q4H PRN PRN Reason: Pain (Mild) Stop: 03/02/18 18:38 Last Admin: 01/03/18 13:33 Dose: 650 mg Al Hydrox/Mg Hydrox/Simethicone (Maalox) 30 ml PO Q6H PRN PRN Reason: Dyspepsia Stop: 03/02/18 15:32 Albuterol Sulfate (Albuterol 2.5mg/3ml Neb Ud) 2.5 mg HHN Q6H PRN PRN Reason: Shortness of Breath or Wheeze Stop: 03/03/18 12:17 Last Admin: 01/02/18 12:54 Dose: 2.5 mg Amlodipine Besylate (Norvasc) 10 mg PO DAILY [facility] Stop: 03/03/18 08:59 Last Admin: 01/08/18 09:31 Dose: 10 mg Atorvastatin Calcium (Lipitor) 20 mg PO 2100 [facility] Stop: 03/02/18 20:59 Last Admin: 01/07/18 20:49 Dose: 20 mg Glipizide (Glucotrol) 5 mg PO BID [facility] Stop: 03/02/18 16:59 Last Admin: 01/08/18 09:26 Dose: 5 mg Guaifenesin (Robitussin) 100 mg PO Q4H PRN PRN Reason: Cough Stop: 03/02/18 16:41 Ibuprofen (Motrin) 400 mg PO Q4HR PRN PRN Reason: Pain (Mild) Stop: 03/02/18 15:36 Last Admin: 01/08/18 06:41 Dose: 400 mg Insulin Aspart (Novolog Insulin Sliding Scale) 0 units SUBQ ACHS ADRIANA PRN Reason: Protocol Stop: 03/02/18 16:59 Last Admin: 01/08/18 06:39 Dose: 3 units Insulin Detemir (Levemir Insulin) 10 units SUBQ DAILY ADRIANA PRN Reason: Protocol Stop: 03/05/18 10:59 Last Admin: 01/08/18 09:27 Dose: 10 units Lisinopril (Zestril) 10 mg PO BID ADRIANA Stop: 03/02/18 16:59 Last Admin: 01/08/18 09:31 Dose: 10 mg Lorazepam (Ativan) 0.5 mg PO Q4HR PRN PRN Reason: ANXIETY/AGITATION Stop: 03/08/18 11:58 Magnesium Hydroxide (Milk Of Magnesia) 30 ml PO DAILY PRN PRN Reason: Constipation Stop: 03/02/18 15:32 Paroxetine HCl (Paxil) 10 mg PO DAILY ADRIANA PRN Reason: Protocol Stop: 03/05/18 08:59 Last Admin: 01/08/18 09:26 Dose: 10 mg Paroxetine HCl (Paxil) 20 mg PO HS ADRIANA PRN Reason: Protocol Stop: 03/04/18 20:59 Last Admin: 01/07/18 20:50 Dose: 20 mg Risperidone (Risperdal) 2 mg PO DAILY ADRIANA PRN Reason: Protocol Stop: 03/05/18 08:59 Last Admin: 01/08/18 09:26 Dose: 2 mg General: Alert, No acute distress HEENT: Atraumatic Neck: Supple Cardiovascular: Regular rate Lungs: Clear to auscultation Abdomen: Bowel sounds, Soft Extremities: Other (no edema) Neurological: Other (unstable gait) Skin: Other (Warm and dry) Psych/Mental Status: Other (Awake, alert, confused.) Assessment/Plan - Problem List Patient Problems: All Active Problems Activity intolerance (Acute) R68.89 Arthritis (Acute) M19.90 Diabetes (Acute) E11.9 HTN (hypertension) (Acute) I10 Schizophrenia (Acute) F20.9 - Assessment Assessment: Current Active Problems Problem Status Onset Activity intolerance Acute Arthritis Acute Diabetes Acute HTN (hypertension) Acute Schizophrenia Acute Patient is awake, alert, calm, in no acute distress Dx: Increased in agitation, HTN, CAD, DM - Plan Plan: Patient is follow by psychiatry, she is continue with home meds, Will continue to monitor. Nutritional Asmnt/Malnutr-PDOC - Dietary Evaluation Malnutrition Findings (Please click <Entered> for more info): Nutritional Asmnt/Malnutrition Start: 01/02/18 11: 40 Text: Status: Complete Freq: Document 01/02/18 11:40 ROBB (Rec: 01/02/18 11:49 ROBB [email or web address]) Nutritional Asmnt/Malnutrition Patient General Information Nutritional Screening High Risk Diagnosis Psychosis Pertinent Medical Hx/Surgical Hx None indicated Subjective Information patient was transferred from another medical center; seen as high risk due to elevated blood glucose. Current Diet Order/ Nutrition Support 60 gm CCHO Patient / S.O Not Indicated Pertinent Medications maalox, lipitor, Glipizide, Novolog, MOM Pertinent Labs Glucose 267 Nutritional Hx/Data Height 1.83 m Height (Calculated Centimeters) 182.9 Current Weight (lbs) 98.883 kg Weight (Calculated Kilograms) 98.9 Weight (Calculated Grams) 02824.1 [place] Body Weight 160 % [place] Body Weight 136 Body Mass Index (BMI) 29.5 Recent Weight Change No Weight Status Overweight GI Symptoms GI Symptoms None Difficult in: None Food Allergies No Cultural/Ethnic/Hoahaoism Belief None indicated Skin Integrity/Comment: Elias 18, intact Estimated Nutritional Goals BEE in Kcals: Using Current wt Calories/Kcals/Kg 99kg CBW (20-25 kcal/kg) Kcals Calculated 3096-0881 kcal/day Protein: Using Current wt Protein g/kg: .8-1 gm/kg Protein Calculated 80-100gm/day Fluid: ml 9787-8105 ml/day (1 ml/kcal) Nutritional Problem 1. Problem Problem Altered nutrition related lab values Etiology Related to hyperglycemia aeb Signs/Symptoms: GLucose 267 Intervention/Recommendation Comments 1. Continue 60 gm CCHO diet as toelrated by patient. 2. MD to modify insulin regimen for optimal glycemic control Expected Outcomes/Goals Expected Outcomes/Goals oral intake to meet >75% of needs, nutrition related labs/ glucose normalize, weight stable or trends toward ideal body weight
[2018-01-08] MEDS: Atorvastatin Calcium 10 MG TAB PO SCH (21:03)
--- NOTE | 2018-01-09 00:38 | Progress Notes ---
DATE: 01/08/2018 SUBJECTIVE: The patient with history of schizophrenia. Apparently had her daughter, son-in-law, brought into the hospital. The patient noted to be somewhat calmer, but apparently with a history of voices, behavioral disturbances. Dr. Hernandez seeing the patient over the past few days, noting that she remained very anxious, depressed, withdrawn, still with some hopeless thoughts, concerns for psychotic symptoms. Currently on Paxil and Risperdal. No side effects. Medications were noted. The patient remains withdrawn, but calm. ASSESSMENT: The patient is here due to aggressive behaviors. She seems to be somewhat calmer, but there are ongoing concerns about behaviors. We will monitor and followup: The patient is still delusional telling staff that she is going to have a baby soon, sometimes she focused on smoking. We will monitor and follow up. JOB# [id number]
[2018-01-09] MEDS: INSULIN ASPART SLIDING SCALE 100 UNITS/ML UNIT SUBQ SCH ×3 (06:41→21:31)
[2018-01-09] MEDS: Insulin Detemir 100 units/mL 10mL Vial SUBQ SCH (08:29)
--- NOTE | 2018-01-09 16:26 | Progress Notes ---
DATE: 01/07/2018 SUBJECTIVE: Chart reviewed and the patient interviewed. Also discussed the patient's condition with the staff and reviewed records and labs. The patient continued to have auditory hallucinations. The patient also is still not sleeping much at night. She also is still depressed and "I don't care about life." The patient also is still depressed and wants to be left alone. She also had difficulty deciding if placing patient on some discharge plans. The patient said that she wants to move and to live with her daughter instead of living with her son. At the same time, the patient is cooperative with treatment and compliant with taking her medications. ASSESSMENT: The patient is still depressed and she is still agitated. The patient is still depressed and withdrawn. TREATMENT PLAN: Continue to monitor her behavior closely. The patient also is having generalized weakness and we will work on discharge plans and possible placement issues. [facility]# [id number]
[2018-01-09] MEDS: Atorvastatin Calcium 10 MG TAB PO SCH (21:29)
--- NOTE | 2018-01-09 22:29 | Progress Notes ---
DATE: 01/09/2018 The patient with history of schizophrenia. Noted to be calmer, more cooperative, well oriented. Denying any overt SI or HI. Staff concerned about her aggressive symptoms, but she seems to be somewhat calmer following unit rules and directions. Seems to be taking her medications and fairly well oriented. Noted by staff to be more pleasant, able to be redirected. Per social work notes, daughter notes that the patient can go home. Medications were reviewed including dosages and frequencies. ASSESSMENT: The patient seems to be improving, calmer, more cooperative, no agitation, no escalation of behaviors, psychotic symptoms better controlled. We will continue to monitor, coordinate care with social work regarding safe discharge plan. JOB# [id number]
[2018-01-10] MEDS: Albuterol Nebulizer 2.5mg/3mL HHN PRN (05:22)
[2018-01-10] MEDS: INSULIN ASPART SLIDING SCALE 100 UNITS/ML UNIT SUBQ SCH ×5 (07:02→20:58)
[2018-01-10] MEDS: Insulin Detemir 100 units/mL 10mL Vial SUBQ SCH (08:28)
--- NOTE | 2018-01-10 08:44 | General Progress Note ---
Subjective - Review of Systems Service Date: 01/10/18 Subjective: I have pain in my foot Objective - Results Result Diagrams: 01/03/18 06:30 01/03/18 06:30 Recent Labs: Laboratory Last Values WBC 6.9 Th/cmm (4.8-10.8) 01/03/18 06:30 RBC 4.10 Mil/cmm (3.80-5.10) 01/03/18 06:30 Hgb 11.4 gm/dL (12-16) L 01/03/18 06:30 Hct 34.5 % (41.0-60) L 01/03/18 06:30 MCV 84.3 fl (81-100) 01/03/18 06:30 MCH 27.9 pg (27.0-31.0) 01/03/18 06:30 MCHC Differential 33.1 pg (28.0-36.0) 01/03/18 06:30 RDW 13.1 % (11.5-20.0) 01/03/18 06:30 Plt Count 208 Th/cmm (150-400) 01/03/18 06:30 MPV 8.7 fl 01/03/18 06:30 Neutrophils % 48.3 % (40.0-80.0) 01/03/18 06:30 Lymphocytes % 42.2 % (20.0-50.0) 01/03/18 06:30 Monocytes % 7.1 % (2.0-10.0) 01/03/18 06:30 Eosinophils % 1.8 % (0.0-5.0) 01/03/18 06:30 Basophils % 0.6 % (0.0-2.0) 01/03/18 06:30 Sodium 138 mEq/L (136-145) 01/03/18 06:30 Potassium 4.2 mEq/L (3.5-5.1) 01/03/18 06:30 Chloride 104 mEq/L (98-107) 01/03/18 06:30 Carbon Dioxide 27.3 mEq/L (21.0-31.0) 01/03/18 06:30 Anion Gap 10.9 (7.0-16.0) 01/03/18 06:30 BUN 12 mg/dL (7-25) 01/03/18 06:30 Creatinine 0.8 mg/dL (0.6-1.2) 01/03/18 06:30 Est GFR ( Amer) > 60.0 ml/min (>90) 01/03/18 06:30 Est GFR (Non-Af Amer) > 60.0 ml/min 01/03/18 06:30 BUN/Creatinine Ratio 15.0 01/03/18 06:30 Glucose 197 mg/dL (70-105) H 01/03/18 06:30 POC Glucose 206 MG/DL (70 - 105) H 01/09/18 20:03 Hemoglobin A1c % 11.0 % (4.0-6.0) H 01/03/18 06:30 Calcium 9.9 mg/dL (8.6-10.3) 01/03/18 06:30 Total Bilirubin 0.5 mg/dL (0.3-1.0) 01/03/18 06:30 AST 18 U/L (13-39) 01/03/18 06:30 ALT 14 U/L (7-52) 01/03/18 06:30 Alkaline Phosphatase 89 U/L (34-104) 01/03/18 06:30 Total Protein 7.4 gm/dL (6.0-8.3) 01/03/18 06:30 Albumin 4.1 gm/dL (3.7-5.3) 01/03/18 06:30 Globulin 3.3 gm/dL 01/03/18 06:30 Albumin/Globulin Ratio 1.2 (1.0-1.8) 01/03/18 06:30 Triglycerides 56 mg/dL (<150) 01/03/18 06:30 Cholesterol 121 mg/dL (<200) 01/03/18 06:30 LDL Cholesterol Direct 63 mg/dL (75-193) L 01/03/18 06:30 HDL Cholesterol 43 mg/dL (23-92) 01/03/18 06:30 TSH 0.88 uIU/ml (0.34-5.60) 01/03/18 06:30 - Physical Exam Vitals and I&O: Vital Signs Temp 98.1 F 01/10/18 05:00 Pulse 82 01/10/18 08:31 Resp 20 01/10/18 07:25 BP 141/71 01/10/18 08:31 Pulse Ox 96 01/10/18 07:25 Intake & Output 01/09/18 01/10/18 01/10/18 18:59 06:59 18:59 Intake Total 120 Balance 120 Intake: Oral 120 Other: # Voids 2 Active Medications: Current Medications Acetaminophen (Tylenol) 650 mg PO Q6HR PRN PRN Reason: Fever > 101 Stop: 03/02/18 15:36 Last Admin: 01/04/18 06:50 Dose: 650 mg Acetaminophen (Tylenol) 650 mg PO Q4H PRN PRN Reason: Pain (Mild) Stop: 03/02/18 18:38 Last Admin: 01/03/18 13:33 Dose: 650 mg Al Hydrox/Mg Hydrox/Simethicone (Maalox) 30 ml PO Q6H PRN PRN Reason: Dyspepsia Stop: 03/02/18 15:32 Last Admin: 01/10/18 05:23 Dose: 30 ml Albuterol Sulfate (Albuterol 2.5mg/3ml Neb Ud) 2.5 mg HHN Q6H PRN PRN Reason: Shortness of Breath or Wheeze Stop: 03/03/18 12:17 Last Admin: 01/10/18 05:22 Dose: 2.5 mg Amlodipine Besylate (Norvasc) 10 mg PO DAILY [facility] Stop: 03/03/18 08:59 Last Admin: 01/10/18 08:31 Dose: 10 mg Atorvastatin Calcium (Lipitor) 20 mg PO 2100 [facility] Stop: 03/02/18 20:59 Last Admin: 01/09/18 21:29 Dose: 20 mg Glipizide (Glucotrol) 5 mg PO BID [facility] Stop: 03/02/18 16:59 Last Admin: 01/10/18 08:29 Dose: 5 mg Guaifenesin (Robitussin) 100 mg PO Q4H PRN PRN Reason: Cough Stop: 03/02/18 16:41 Ibuprofen (Motrin) 400 mg PO Q4HR PRN PRN Reason: Pain (Mild) Stop: 03/02/18 15:36 Last Admin: 01/09/18 21:30 Dose: 400 mg Insulin Aspart (Novolog Insulin Sliding Scale) 0 units SUBQ ACHS ADRIANA PRN Reason: Protocol Stop: 03/02/18 16:59 Last Admin: 01/10/18 08:29 Dose: Not Given Insulin Detemir (Levemir Insulin) 10 units SUBQ DAILY ADRIANA PRN Reason: Protocol Stop: 03/05/18 10:59 Last Admin: 01/10/18 08:28 Dose: 10 units Lisinopril (Zestril) 10 mg PO BID ADRIANA Stop: 03/02/18 16:59 Last Admin: 01/10/18 08:30 Dose: 10 mg Lorazepam (Ativan) 0.5 mg PO Q4HR PRN PRN Reason: ANXIETY/AGITATION Stop: 03/08/18 11:58 Last Admin: 01/09/18 21:30 Dose: 0.5 mg Magnesium Hydroxide (Milk Of Magnesia) 30 ml PO DAILY PRN PRN Reason: Constipation Stop: 03/02/18 15:32 Paroxetine HCl (Paxil) 10 mg PO DAILY ADRIANA PRN Reason: Protocol Stop: 03/05/18 08:59 Last Admin: 01/10/18 08:30 Dose: 10 mg Paroxetine HCl (Paxil) 20 mg PO HS ADRIANA PRN Reason: Protocol Stop: 03/04/18 20:59 Last Admin: 01/09/18 21:29 Dose: 20 mg Risperidone (Risperdal) 2 mg PO DAILY ADRIANA PRN Reason: Protocol Stop: 03/05/18 08:59 Last Admin: 01/10/18 08:30 Dose: 2 mg General: Alert, No acute distress HEENT: Atraumatic Neck: Supple Cardiovascular: Regular rate Lungs: Clear to auscultation Abdomen: Bowel sounds, Soft Extremities: Other (no edema) Neurological: Other (unstable gait) Skin: Other (Warm and dry) Psych/Mental Status: Other (Awake, alert, confused.) Assessment/Plan - Problem List Patient Problems: All Active Problems Activity intolerance (Acute) R68.89 Arthritis (Acute) M19.90 Diabetes (Acute) E11.9 HTN (hypertension) (Acute) I10 Schizophrenia (Acute) F20.9 - Assessment Assessment: Current Active Problems Problem Status Onset Activity intolerance Acute Arthritis Acute Diabetes Acute HTN (hypertension) Acute Schizophrenia Acute Patient is awake, alert, calm, in no acute distress Dx: Increased in agitation, HTN, CAD, DM. - Plan Plan: Patient is follow by psychiatry, she is continue with home meds, Will continue to monitor. Nutritional Asmnt/Malnutr-PDOC - Dietary Evaluation Malnutrition Findings (Please click <Entered> for more info): Nutritional Asmnt/Malnutrition Start: 01/02/18 11: 40 Text: Status: Complete Freq: Document 01/02/18 11:40 AMARISEnrique (Rec: 01/02/18 11:49 ROBB AMADO- [email or web address]) Nutritional Asmnt/Malnutrition Patient General Information Nutritional Screening High Risk Diagnosis Psychosis Pertinent Medical Hx/Surgical Hx None indicated Subjective Information patient was transferred from another medical center; seen as high risk due to elevated blood glucose. Current Diet Order/ Nutrition Support 60 gm CCHO Patient / S.O Not Indicated Pertinent Medications maalox, lipitor, Glipizide, Novolog, MOM Pertinent Labs Glucose 267 Nutritional Hx/Data Height 1.83 m Height (Calculated Centimeters) 182.9 Current Weight (lbs) 98.883 kg Weight (Calculated Kilograms) 98.9 Weight (Calculated Grams) 90241.1 [place] Body Weight 160 % [place] Body Weight 136 Body Mass Index (BMI) 29.5 Recent Weight Change No Weight Status Overweight GI Symptoms GI Symptoms None Difficult in: None Food Allergies No Cultural/Ethnic/Mandaeism Belief None indicated Skin Integrity/Comment: Elias 18, intact Estimated Nutritional Goals BEE in Kcals: Using Current wt Calories/Kcals/Kg 99kg CBW (20-25 kcal/kg) Kcals Calculated 3792-2869 kcal/day Protein: Using Current wt Protein g/kg: .8-1 gm/kg Protein Calculated 80-100gm/day Fluid: ml 2068-3761 ml/day (1 ml/kcal) Nutritional Problem 1. Problem Problem Altered nutrition related lab values Etiology Related to hyperglycemia aeb Signs/Symptoms: GLucose 267 Intervention/Recommendation Comments 1. Continue 60 gm CCHO diet as toelrated by patient. 2. MD to modify insulin regimen for optimal glycemic control Expected Outcomes/Goals Expected Outcomes/Goals oral intake to meet >75% of needs, nutrition related labs/ glucose normalize, weight stable or trends toward ideal body weight
--- NOTE | 2018-01-10 10:05 | Progress Notes ---
DATE: 01/10/2018 SUBJECTIVE: Chart reviewed and the patient interviewed. Also discussed the patient's condition with the staff and reviewed records and labs. The patient is complaining of pain in her leg after she "hit accidentally in her leg by a mop." The patient is still anxious and depressed, but affect is brighter. The patient this morning also was complaining of chest pain that seems to be more of related to her anxiety level and it was released by Maalox. The patient currently does not have any complaint of chest pain. The patient is less irritable and less anxious. She also is cooperative and compliant with taking her medications with no side effects of medications. ASSESSMENT: The patient is less anxious and less depressed. TREATMENT PLAN: Continue monitoring her behavior closely. Also, x-ray for her neck will be done later on today. Also continue to monitor her complaint of chest pain and we will continue to follow up closely. [facility]# [id number]
--- NOTE | 2018-01-10 10:18 | Diagnostic Imaging Report ---
Left ankle (3 views) HISTORY: Pain No acute bony abnormalities. No fractures. Joint spaces appear normal. Spur formation noted off the plantar and posterior aspects of the calcaneus. IMPRESSION: 1. No acute abnormalities 2. Calcaneal spur formation In the presence of recent trauma and persistent symptoms, a repeat radiograph in 5-7 days may be helpful for detection of a subtle or occult fracture.
--- NOTE | 2018-01-10 10:18 | Diagnostic Imaging Report ---
Left foot (3 views) HISTORY: Pain The exam demonstrates mild deformity along the lateral aspect of the base of the fifth metatarsal which appears chronic. No definite acute bony abnormalities are seen. No definite acute fractures. Spur formation is seen off the plantar and dorsal aspects of the posterior calcaneus. Marked flexion involves the second PIP joint precluded evaluation of the mid and distal phalanges. IMPRESSION: 1. No definite acute bony abnormalities 2. Mild deformity along the lateral aspect of the base of the fifth metatarsal which appears chronic. 3. Calcaneal spur formation 4. Flexion deformity involving the second PIP joint. In the presence of recent trauma and persistent symptoms, a repeat radiograph in 5-7 days may be helpful for detection of a subtle or occult fracture.
[2018-01-10] MEDS: Atorvastatin Calcium 10 MG TAB PO SCH (20:55)
[2018-01-11] MEDS: INSULIN ASPART SLIDING SCALE 100 UNITS/ML UNIT SUBQ SCH ×2 (06:37→12:12)
[2018-01-11] MEDS ORDERED: Venelex 60gm Tube TP SCH (09:00)
--- NOTE | 2018-01-11 09:15 | General Progress Note ---
Subjective - Review of Systems Service Date: 01/11/18 Subjective: I have no pain in my foot Objective - Results Result Diagrams: 01/03/18 06:30 01/03/18 06:30 Recent Labs: Laboratory Last Values WBC 6.9 Th/cmm (4.8-10.8) 01/03/18 06:30 RBC 4.10 Mil/cmm (3.80-5.10) 01/03/18 06:30 Hgb 11.4 gm/dL (12-16) L 01/03/18 06:30 Hct 34.5 % (41.0-60) L 01/03/18 06:30 MCV 84.3 fl (81-100) 01/03/18 06:30 MCH 27.9 pg (27.0-31.0) 01/03/18 06:30 MCHC Differential 33.1 pg (28.0-36.0) 01/03/18 06:30 RDW 13.1 % (11.5-20.0) 01/03/18 06:30 Plt Count 208 Th/cmm (150-400) 01/03/18 06:30 MPV 8.7 fl 01/03/18 06:30 Neutrophils % 48.3 % (40.0-80.0) 01/03/18 06:30 Lymphocytes % 42.2 % (20.0-50.0) 01/03/18 06:30 Monocytes % 7.1 % (2.0-10.0) 01/03/18 06:30 Eosinophils % 1.8 % (0.0-5.0) 01/03/18 06:30 Basophils % 0.6 % (0.0-2.0) 01/03/18 06:30 Sodium 138 mEq/L (136-145) 01/03/18 06:30 Potassium 4.2 mEq/L (3.5-5.1) 01/03/18 06:30 Chloride 104 mEq/L (98-107) 01/03/18 06:30 Carbon Dioxide 27.3 mEq/L (21.0-31.0) 01/03/18 06:30 Anion Gap 10.9 (7.0-16.0) 01/03/18 06:30 BUN 12 mg/dL (7-25) 01/03/18 06:30 Creatinine 0.8 mg/dL (0.6-1.2) 01/03/18 06:30 Est GFR ( Amer) > 60.0 ml/min (>90) 01/03/18 06:30 Est GFR (Non-Af Amer) > 60.0 ml/min 01/03/18 06:30 BUN/Creatinine Ratio 15.0 01/03/18 06:30 Glucose 197 mg/dL (70-105) H 01/03/18 06:30 POC Glucose 206 MG/DL (70 - 105) H 01/09/18 20:03 Hemoglobin A1c % 11.0 % (4.0-6.0) H 01/03/18 06:30 Calcium 9.9 mg/dL (8.6-10.3) 01/03/18 06:30 Total Bilirubin 0.5 mg/dL (0.3-1.0) 01/03/18 06:30 AST 18 U/L (13-39) 01/03/18 06:30 ALT 14 U/L (7-52) 01/03/18 06:30 Alkaline Phosphatase 89 U/L (34-104) 01/03/18 06:30 Total Protein 7.4 gm/dL (6.0-8.3) 01/03/18 06:30 Albumin 4.1 gm/dL (3.7-5.3) 01/03/18 06:30 Globulin 3.3 gm/dL 01/03/18 06:30 Albumin/Globulin Ratio 1.2 (1.0-1.8) 01/03/18 06:30 Triglycerides 56 mg/dL (<150) 01/03/18 06:30 Cholesterol 121 mg/dL (<200) 01/03/18 06:30 LDL Cholesterol Direct 63 mg/dL (75-193) L 01/03/18 06:30 HDL Cholesterol 43 mg/dL (23-92) 01/03/18 06:30 TSH 0.88 uIU/ml (0.34-5.60) 01/03/18 06:30 - Physical Exam Vitals and I&O: Vital Signs Temp 96.4 F 01/11/18 05:44 Pulse 85 01/11/18 06:47 Resp 20 01/11/18 07:47 BP 90/61 01/11/18 05:44 Pulse Ox 97 04/24/18 06:47 Intake & Output 01/10/18 01/11/18 01/11/18 18:59 06:59 18:59 Intake Total 1100 500 Balance 1100 500 Intake: Oral 1100 500 Other: # Voids 3 2 # Bowel Movements 0 0 Active Medications: Current Medications Acetaminophen (Tylenol) 650 mg PO Q6HR PRN PRN Reason: Fever > 101 Stop: 03/02/18 15:36 Last Admin: 01/04/18 06:50 Dose: 650 mg Acetaminophen (Tylenol) 650 mg PO Q4H PRN PRN Reason: Pain (Mild) Stop: 03/02/18 18:38 Last Admin: 01/03/18 13:33 Dose: 650 mg Al Hydrox/Mg Hydrox/Simethicone (Maalox) 30 ml PO Q6H PRN PRN Reason: Dyspepsia Stop: 03/02/18 15:32 Last Admin: 01/10/18 05:23 Dose: 30 ml Albuterol Sulfate (Albuterol 2.5mg/3ml Neb Ud) 2.5 mg HHN Q6H PRN PRN Reason: Shortness of Breath or Wheeze Stop: 03/03/18 12:17 Last Admin: 01/10/18 05:22 Dose: 2.5 mg Amlodipine Besylate (Norvasc) 10 mg PO DAILY [facility] Stop: 03/03/18 08:59 Last Admin: 01/11/18 09:04 Dose: Not Given Atorvastatin Calcium (Lipitor) 20 mg PO 2100 [facility] Stop: 03/02/18 20:59 Last Admin: 01/10/18 20:55 Dose: 20 mg [place] Oil/[place] Balsam/Trypsin (Venelex) 1 appl TP DAILY [facility] Stop: 03/12/18 08:59 Glipizide (Glucotrol) 5 mg PO BID [facility] Stop: 03/02/18 16:59 Last Admin: 01/11/18 09:03 Dose: 5 mg Guaifenesin (Robitussin) 100 mg PO Q4H PRN PRN Reason: Cough Stop: 03/02/18 16:41 Ibuprofen (Motrin) 400 mg PO Q4HR PRN PRN Reason: Pain (Mild) Stop: 03/02/18 15:36 Last Admin: 04/24/18 06:30 Dose: 400 mg Insulin Aspart (Novolog Insulin Sliding Scale) 0 units SUBQ ACHS ADRIANA PRN Reason: Protocol Stop: 03/02/18 16:59 Last Admin: 01/11/18 06:37 Dose: 3 units Insulin Detemir (Levemir Insulin) 10 units SUBQ DAILY ADRIANA PRN Reason: Protocol Stop: 03/05/18 10:59 Last Admin: 01/10/18 08:28 Dose: 10 units Lisinopril (Zestril) 10 mg PO BID ADRIANA Stop: 03/02/18 16:59 Last Admin: 01/11/18 09:05 Dose: Not Given Lorazepam (Ativan) 0.5 mg PO Q4HR PRN PRN Reason: ANXIETY/AGITATION Stop: 03/08/18 11:58 Last Admin: 01/10/18 20:56 Dose: 0.5 mg Magnesium Hydroxide (Milk Of Magnesia) 30 ml PO DAILY PRN PRN Reason: Constipation Stop: 03/02/18 15:32 Paroxetine HCl (Paxil) 10 mg PO DAILY ADRIANA PRN Reason: Protocol Stop: 03/05/18 08:59 Last Admin: 01/11/18 09:03 Dose: 10 mg Paroxetine HCl (Paxil) 20 mg PO HS ADRIANA PRN Reason: Protocol Stop: 03/04/18 20:59 Last Admin: 01/10/18 20:55 Dose: 20 mg Risperidone (Risperdal) 2 mg PO DAILY ADRIANA PRN Reason: Protocol Stop: 03/05/18 08:59 Last Admin: 01/11/18 09:03 Dose: 2 mg General: Alert, No acute distress HEENT: Atraumatic Neck: Supple Cardiovascular: Regular rate Lungs: Clear to auscultation Abdomen: Bowel sounds, Soft Extremities: Other (no edema) Neurological: Other (unstable gait) Skin: Other (Warm and dry) Psych/Mental Status: Other (Awake, alert, confused.) Assessment/Plan - Problem List Patient Problems: All Active Problems Activity intolerance (Acute) R68.89 Arthritis (Acute) M19.90 Diabetes (Acute) E11.9 HTN (hypertension) (Acute) I10 Schizophrenia (Acute) F20.9 - Assessment Assessment: Current Active Problems Problem Status Onset Activity intolerance Acute Arthritis Acute Diabetes Acute HTN (hypertension) Acute Schizophrenia Acute Patient is awake, alert, calm, in no acute distress. X-ray shows no fracture. Dx: Increased in agitation, HTN, CAD, DM. - Plan Plan: Patient is follow by psychiatry, she is continue with home meds, Will continue to monitor. Nutritional Asmnt/Malnutr-PDOC - Dietary Evaluation Malnutrition Findings (Please click <Entered> for more info): Nutritional Asmnt/Malnutrition Start: 01/02/18 11: 40 Text: Status: Complete Freq: Document 01/02/18 11:40 [email or web address] (Rec: 01/02/18 11:49 [email or web address] [email or web address]) Nutritional Asmnt/Malnutrition Patient General Information Nutritional Screening High Risk Diagnosis Psychosis Pertinent Medical Hx/Surgical Hx None indicated Subjective Information patient was transferred from another medical center; seen as high risk due to elevated blood glucose. Current Diet Order/ Nutrition Support 60 gm CCHO Patient / S.O Not Indicated Pertinent Medications maalox, lipitor, Glipizide, Novolog, MOM Pertinent Labs Glucose 267 Nutritional Hx/Data Height 1.83 m Height (Calculated Centimeters) 182.9 Current Weight (lbs) 98.883 kg Weight (Calculated Kilograms) 98.9 Weight (Calculated Grams) 26211.1 [place] Body Weight 160 % [place] Body Weight 136 Body Mass Index (BMI) 29.5 Recent Weight Change No Weight Status Overweight GI Symptoms GI Symptoms None Difficult in: None Food Allergies No Cultural/Ethnic/Hindu Belief None indicated Skin Integrity/Comment: Elias 18, intact Estimated Nutritional Goals BEE in Kcals: Using Current wt Calories/Kcals/Kg 99kg CBW (20-25 kcal/kg) Kcals Calculated 7281-0606 kcal/day Protein: Using Current wt Protein g/kg: .8-1 gm/kg Protein Calculated 80-100gm/day Fluid: ml 0032-8893 ml/day (1 ml/kcal) Nutritional Problem 1. Problem Problem Altered nutrition related lab values Etiology Related to hyperglycemia aeb Signs/Symptoms: GLucose 267 Intervention/Recommendation Comments 1. Continue 60 gm CCHO diet as toelrated by patient. 2. MD to modify insulin regimen for optimal glycemic control Expected Outcomes/Goals Expected Outcomes/Goals oral intake to meet >75% of needs, nutrition related labs/ glucose normalize, weight stable or trends toward ideal body weight
[2018-01-11] MEDS: Insulin Detemir 100 units/mL 10mL Vial SUBQ SCH (09:51)
--- NOTE | 2018-01-11 22:01 | Discharge Summary ---
DATE OF DISCHARGE: 01/11/2018 FINAL DIAGNOSIS AND PRIMARY DIAGNOSIS: Major depression, severe, recurrent, without psychotic features. REASON FOR HOSPITALIZATION: The patient was admitted to the hospital because of increased depression and feeling hopeless and helpless. HOSPITAL COURSE: The patient continued to be in a depressed mood and feeling hopeless and helpless. The patient also was withdrawn and was interacting minimally with others. She showed ineffective coping. Gradually, the patient's affect was brighter and the patient was less depressed. She also interacted more with peers and with others. The patient was not suicidal or homicidal, and the patient was discharged from the hospital. Physical exam of the patient showed no major medical problems and the patient had no major medical issues while in the hospital. Also, no major abnormal labs. AFTER DISCHARGE PLAN: The patient discharged from the hospital with plans for outpatient treatment and followup will continue as an outpatient. JOB# [id number]
== END 2018-01-11 14:40 | disposition home or self-care (01) | DRG 885 ==
LOC: GERO2 14:06
PROVIDERS: ADMIT Psychiatry & Neurology Psychiatry; ATTEND Psychiatry & Neurology Psychiatry
DX: F33.2 Major depressive disorder, recurrent severe without psychotic features (principal); F09 Unspecified mental disorder due to known physiological condition; I25.10 Atherosclerotic heart disease of native coronary artery without angina pectoris; I10 Essential (primary) hypertension; E78.5 Hyperlipidemia, unspecified; F19.10 Other psychoactive substance abuse, uncomplicated; M19.90 Unspecified osteoarthritis, unspecified site; E11.9 Type 2 diabetes mellitus without complications; F41.9 Anxiety disorder, unspecified; Z79.899 Other long term (current) drug therapy; Z72.89 Other problems related to lifestyle
CPT/HCPCS: 36415-UA; 73610-TC; 73630-TC-LT; 80053-TC; 80061-TC; 82948-90; 83036-90; 84443-TC; 85025-TC; 90899; 94640; 94760; G0410; J1815; J7613; Z7610